=== PATIENT | female | born 1995 | race Caucasian/White ===

== ENCOUNTER 2016-09-18 16:51 | Emergency (ER) | payer OTHER ==
[~2016-09-18 16:51] MED LIST: BENTYL20 MG PO; MEGA BIOTIN10000 MCG PO; MICROGESTIN1 TA1 PO; MIRALAX17 GM PO; NAPROXEN PO; PRILOSEC20 M1 PO; SEASONIQUE1 BLIST PA PO; SKELAXIN PO; VOLTAREN50 MG PO; VOLTAREN75 MG PO
[2016-09-18 17:51] LABS: BASOPHIL% 0.4 % (0-2.5); EOSINOPHIL# 0.2 X10e3 (0-0.7); EOSINOPHIL% 2.1 % (0.0-7.0); HEMATOCRIT 36.9 % (35.0-45.0); HEMOGLOBIN 12.5 gm/dL (12.0-16.0); LYMPHOCYTE# 1.1 X10e3 (1.0-3.5); MEAN CELL VOLUME 83.1 FL (83-96); MEAN CORPUSCULAR HEMOGLOBIN 28.1 PG (28-34); MEAN CORPUSCULAR HGB CONC 33.8 g/dL (30-36); MEAN PLATELET VOLUME 8.6 FL (6.5-11.5); MONOCYTE# 0.7 X10e3 (0-1.0); MONOCYTE% 7.3 % (3.0-12.0); NEUTROPHIL# 7.2 X10e3 (1.5-7.1); NEUTROPHIL% 78.2 % (40-75); PLATELET COUNT 231 X10e3 (140-420); RED BLOOD COUNT 4.44 X10e (3.90-5.30); RED CELL DISTRIBUTION WIDTH 12.6 % (11.0-15.5); WHITE BLOOD COUNT 9.3 X10e3 (4.0-10.5)
[2016-09-18 18:08] LABS: DIFF IND NO
== END 2016-09-18 19:35 | disposition home or self-care (01) ==
LOC: CED 16:51 → CFTX 16:51 → CED 18:19 → CFTX 19:35
PROVIDERS: Physician Assistant
DX: O03.9 Complete or unspecified spontaneous abortion without complication (principal); K59.00 Constipation, unspecified
CPT/HCPCS: 36415; 84702; 84703; 85025; 86850; 86900; 86901; 96372; 99284; 99285; J2790